=== PATIENT | female | born 1945 | race Hispanic/Latino ===

== ENCOUNTER 2018-05-29 08:11 | Outpatient (CLI) | payer MEDICARE ==
--- NOTE | 2018-05-29 08:56 | ULT ---
RIGHT UPPER QUADRANT ULTRASOUND: HISTORY: Elevated LFTs. FINDINGS: The gallbladder has been removed. The common duct is in the 2 mm range. The liver is of increased e chogenicity measuring approximately 16 cm in length. There is an approximately 2 cm cyst within the right lobe. The right kidney is normal in size and not obstructed. The pancreas is obscured. IMPRESSION: 1. Fatty changes of the liver. 2. Postop cholecystectomy change. 3. A 2 cm right lobe hepatic cyst. POS: [facility]
== END 2018-05-29 08:12 | disposition home or self-care (01) ==
LOC: BICULT 08:11
PROVIDERS: ATTEND Family Medicine
DX: R74.8 Abnormal levels of other serum enzymes (principal); K76.0 Fatty (change of) liver, not elsewhere classified; K76.89 Other specified diseases of liver; Z90.49 Acquired absence of other specified parts of digestive tract
CPT/HCPCS: 76705